=== PATIENT | female | born 1970 | race Caucasian/White ===

== ENCOUNTER 2017-02-08 19:11 | Emergency (ER) | payer BC ==
[~2017-02-08] VITALS: Ht 162.6 cm; Wt 61.7 kg
[~2017-02-08 19:11] MED LIST: ACYCLOVIR; CELEXA 20MG20 MG/TAB PO; CELEXA10 MG; DOXYCYCLINE 10100 MG PO; FAMVIR500 MG PO; FLEXERIL 1010 MG/TAB PO; FLEXERIL10 MG PO; LORTAB 5/500 501 TAB PO; MOBIC 7.5MG7.5 MG PO; MOTRIN 600600 MG/TAB PO; MOTRIN 800800 MG/TAB PO; NO HOME MEDICATIONS; NORCO 325 MG-51 TAB PO; PREDNISONE10 MG PO; PROAIR HFA0.09 MG/AC IH; TUSS PO; TYLENOL W/COD1 UDTAB PO; ZITHROMAX Z PA250 MG PO
[2017-02-08 19:20] VITALS: BP 141/81; TEMP 99.1
[2017-02-08] MEDS ORDERED: LEXAPRO 10MG10 MG PO (19:24)
[2017-02-08] MEDS ORDERED: FLONASE NASAL S16 GM NS (19:24)
[2017-02-08] MEDS ORDERED: SYNTHROID 0.10.15 MG PO (19:24)
[2017-02-08] MEDS ORDERED: KLONOPIN 0.5MG0.5 MG PO (19:24)
[2017-02-08 20:07] LABS: BASO % 0.4 % (0.0-2.0); EOS # 0.2 (0.0-0.7); GRAN # 4.6 (1.4-6.5); GRAN % 61.4 % (42.2-75.2); LYMPH # 2.1 (1.2-3.4); LYMPH % 27.9 % (20.0-51.0); MEAN CELL VOLUME 93 fl (80.0-100.0); MEAN CORPUSCULAR HGB CONC 34 g/dl (33.0-37.0); MONO # 0.5 (0.1-0.6); PLATELET COUNT 236 K/mm3 (130-400); RED BLOOD COUNT 3.74 M/mm3 (4.10-5.30); WHITE BLOOD COUNT 7.5 K/mm3 (4.8-10.8)
[2017-02-08 20:08] LABS: HEMATOCRIT 34.6 % (37.0-47.0); HEMOGLOBIN 11.7 g/dl (12.5-16.0); MEAN CORPUSCULAR HEMOGLOBIN 31 pg (27.0-31.0)
[2017-02-08 20:19] LABS: ADJUSTED CALCIUM 8.9 mg/dL (8.4-10.2); ALBUMIN 4.4 gm/dL (3.5-5.0); BILIRUBIN,TOTAL 0.4 mg/dL (0.0-1.0); CALCIUM 9.2 mg/dL (8.4-10.2); CREATININE, serum 0.71 mg/dL (0.52-1.25); TOTAL PROTEIN 7.7 gm/dL (6.4-8.2)
[2017-02-08 20:25] LABS: C-REACTIVE PROTEIN 0.5 mg/dL (0.0-0.9)
[2017-02-08] MEDS ORDERED: CLEOCIN HCL300 MG PO (20:30)
[2017-02-08 20:49] VITALS: PULSE 58
== END 2017-02-08 20:53 | disposition home or self-care (01) ==
LOC: COL.ER 19:11
PROVIDERS: Physician Assistant
DX: R22.0 Localized swelling, mass and lump, head (principal); E03.9 Hypothyroidism, unspecified; Z98.890 Other specified postprocedural states; F17.210 Nicotine dependence, cigarettes, uncomplicated

== ENCOUNTER → 2018-06-01 | Outpatient (CLI) | payer BC, OTHER ==
[~2018-06-01] MED LIST changes: +CLEOCIN HCL300 MG PO; +FLONASE NASAL S16 GM NS; +KLONOPIN 0.5MG0.5 MG PO; +LEXAPRO 10MG10 MG PO; +SYNTHROID 0.10.15 MG PO
== END ==
LOC: COL.RAD 10:49
DX: M50.322 Other cervical disc degeneration at C5-C6 level (principal); M12.88 Other specific arthropathies, not elsewhere classified, other specified site

== ENCOUNTER 2018-06-29 14:15 | Outpatient (RCR) | payer BC | END 2018-07-27 13:09 | disposition home or self-care (01) | LOC: WSPT 14:15 | DX: M54.2 Cervicalgia (principal) ==

== ENCOUNTER 2018-10-05 10:00 | Outpatient (RCR) | payer BC | END 2018-10-20 13:08 | disposition home or self-care (01) | LOC: WSPT 10:00 | DX: M54.2 Cervicalgia (principal) ==

== ENCOUNTER → 2019-11-26 | Outpatient (CLI) | payer BC | LOC: COL.LAB 13:15 → COL.RAD 13:19 | DX: M25.552 Pain in left hip (principal) ==

== ENCOUNTER 2019-12-21 14:18 | Outpatient (RCR) | payer BC | END 2020-02-18 | disposition home or self-care (01) | LOC: WSPT | DX: M25.552 Pain in left hip (principal) ==

== ENCOUNTER → 2020-03-21 | Outpatient (CLI) | payer BC | LOC: COL.RAD 13:28 | DX: M50.30 Other cervical disc degeneration, unspecified cervical region (principal); M48.02 Spinal stenosis, cervical region ==

== ENCOUNTER 2020-05-19 09:45 | Outpatient (RCR) | payer BC | END 2020-06-26 09:47 | disposition home or self-care (01) | LOC: MKS.ESL.PT 09:45 | DX: M54.2 Cervicalgia (principal) ==

== ENCOUNTER 2020-06-26 08:25 | Outpatient (RCR) | payer BC | END 2020-06-27 09:35 | disposition home or self-care (01) | LOC: WSPT 08:25 | DX: M54.2 Cervicalgia (principal) ==

== ENCOUNTER 2020-11-27 16:00 | Outpatient (RCR) | payer BC | END 2021-01-11 | disposition home or self-care (01) | LOC: MKS.ESL.PT | DX: M54.31 Sciatica, right side (principal) | CPT/HCPCS: G0283-GP ==

== ENCOUNTER → 2021-02-02 | Outpatient (CLI) | payer BC | LOC: COL.RAD 12:18 | DX: E04.2 Nontoxic multinodular goiter (principal); M50.11 Cervical disc disorder with radiculopathy, high cervical region; M48.02 Spinal stenosis, cervical region; M43.12 Spondylolisthesis, cervical region ==

== ENCOUNTER → 2021-06-08 | Outpatient (CLI) | payer OTHER | LOC: MHCPAIN 09:24 | DX: M47.817 Spondylosis without myelopathy or radiculopathy, lumbosacral region (principal); M54.50 Low back pain, unspecified; M53.3 Sacrococcygeal disorders, not elsewhere classified | CPT/HCPCS: G0463 ==

== ENCOUNTER → 2021-06-22 | Outpatient (CLI) | payer OTHER | LOC: MHCPAIN 12:07 | DX: M47.817 Spondylosis without myelopathy or radiculopathy, lumbosacral region (principal); M54.50 Low back pain, unspecified; M53.3 Sacrococcygeal disorders, not elsewhere classified ==

== ENCOUNTER → 2021-06-29 | Outpatient (CLI) | payer OTHER | LOC: MHCPAIN 09:45 | DX: M47.817 Spondylosis without myelopathy or radiculopathy, lumbosacral region (principal); M53.3 Sacrococcygeal disorders, not elsewhere classified; M54.50 Low back pain, unspecified; G89.29 Other chronic pain | CPT/HCPCS: G0463 ==

== ENCOUNTER → 2021-08-03 | Outpatient (CLI) | payer OTHER | LOC: MHCPAIN 13:25 | DX: M47.817 Spondylosis without myelopathy or radiculopathy, lumbosacral region (principal); M53.3 Sacrococcygeal disorders, not elsewhere classified; M54.50 Low back pain, unspecified ==

== ENCOUNTER → 2021-11-09 | Outpatient (CLI) | payer OTHER | LOC: MHCPAIN 11:02 | DX: M47.817 Spondylosis without myelopathy or radiculopathy, lumbosacral region (principal); M54.59 Other low back pain; M53.3 Sacrococcygeal disorders, not elsewhere classified | CPT/HCPCS: G0463 ==